=== PATIENT | male | born 1950 | race Caucasian/White ===

== ENCOUNTER 2024-09-20 11:26 | Outpatient (RCR) | payer MEDICARE, SELFPAY ==
--- NOTE | 2024-09-25 23:46 | CTCFLWUP_ITS ---
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 REASON FOR TODAY?S VISIT: patient here for follow up. He is clinically doing well. Denies any compl aints. Denies any cough, chest pain, abdominal pain or leg cramps. Ambulating well without any help . Has good appetite and good energy levels. His last ct CT scan of the chest abdomen and pelvis do ne was negative for recurrence. HISTORY OF PRESENT ILLNESS: Ana Laura Murdock is a 73-year-old ENG speaking male with history of alcohol abuse has the following oncology history. 08/07/2023: Mr. Murdock was seen here at [facility] emergency room because of slurred speech, mild weakness of the right upper arm. 08/07/2023: CT scan of the head without contrast 08/07/2023: CT angiogram of the carotids as well as brain? 08/07/2023: Hemoglobin 6.0, hematocrit 20.8, MCV 66, WBC 4.7, ANC 3.6, platelets 211,000, iron saturat ion 2%, ferritin 3, TIBC 366, serum iron 8. Guaiac test was positive. Mr. Murdock received 4 units of PRBC. 08/09/2023: Mr. Murdock had a colonoscopy done 08/11/2023: Mr. Murdock had exploratory laparotomy, transverse colectomy with 2 layer handsewn end-to- end anastomosis and cholecystectomy. 08/28/2023: Mr. Murdock is started on ferrous sulfate 325 mg p.o. twice daily. 01/05/2024: CT scan of the chest abdomen and pelvis with IV contrast PAST MEDICAL HISTORY: trans?iscimic???stroke/?colon?ca PAST MEDICAL HISTORY: trans?iscimic???stroke/?colon?ca PAST SURGICAL HISTORY: colon??gallbladder MEDICATIONS: 1. aspirin - 81 mg 1 tab Daily 2. atorvastatin - 80 mg Daily 3. docusate sodium - 100 mg Daily 4. ferrous sulfate - 325 mg Twice a Day 5. losartan - 50 mg 1 tab Daily 6. PANTOPRAZOLE SODIUM - 40 mg Daily 7. Vitamin B-12 - 1,000 mg As directed 8. zinc sulfate - 220 mg Daily?Palabra Meds? Medications Last Reconciled by Venus Thompson MA on 03/14/2024 ALLERGIES: No Known Drug Allergies REVIEW OF SYSTEMS:?Clone ROS? Neurological: No headache, seizures or blurring of vision. Gastrointestinal: No nausea, vomiting, diarrhea or constipation. Cardiovascular: No palpitations or angina pains. Respiratory: No cough, chest pain or shortness of breath. PHYSICAL EXAMINATION:?ClonePE? VITAL SIGNS: Temperature?98.8, B/P?163/109, Oxygen?Saturation?98% Weight?216.4?lbs PAIN: 0 - No pain EYE: Conjunctivae is white MOUTH: Oral cavity is dry. CHEST: Clear to auscultation. No wheezes or rales audible. CARDIAC: Rhythm regular, no murmurs or gallops present. ABDOMEN: Soft. No hepatomegaly. No splenomegaly. EXTREMITIES: No pedal edema or cyanosis. ASSESSMENT and plan : 1. 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 Discussed symptoms of cancer RTC with cbc,cmp and cea 2. History of iron deficiency anemia currently on oral ferrous sulfate, 1 tablet p.o. twice daily Advised to stop oral iron Will do iron studies and if low can take oral iron 3 History of alcohol abuse. Electronically Signed by: {Object.Sanct_ID*PnP.NameFL@M}, {Object.Sanct_ID*PnP.Suffix@U} D: {Object.Sanct_Date} T: {Object.Sanct_Time} CC: PCP: Referring: Day Cary This document was completed utilizing speech recognition software. Grammatical errors, random word in sertions, pronoun errors, and incomplete sentences are an occasional consequence of this system due t o software limitations, ambient noise, and hardware issues. Any formal questions or concerns about th e content, text or information contained within the body of this dictation should be directly address ed to the provider for clarification.
== END 2024-10-13 23:59 | disposition home or self-care (01) ==
LOC: SCTC 11:26
PROVIDERS: PCP Internal Medicine; Referring Provider Internal Medicine; Visit Provider Internal Medicine Hematology & Oncology
DX: Z08 Encounter for follow-up examination after completed treatment for malignant neoplasm (principal); Z85.038 Personal history of other malignant neoplasm of large intestine; Z86.2 Personal history of diseases of the blood and blood-forming organs and certain disorders involving the immune mechanism
CPT/HCPCS: 99212; G0463

== ENCOUNTER → 2024-09-28 | Outpatient (CLI) | payer MEDICARE, SELFPAY ==
[2024-09-28 10:10] LABS: Basophils # (Auto) 0.1 Thou/mm3 (0.0-0.2); Basophils % (Auto) 1 % (0-2.5); Eosinophils # (Auto) 0.1 Thou/mm3 (0.0-0.5); Eosinophils % (Auto) 2 % (0-10); Hematocrit 42.5 % (41.0-53.0); Hemoglobin 14.7 g/dL (13.5-16.0); Immature Granulocytes % (Auto) 0 % (0-0); Immature Granulocytes Auto 0.02 Thou/mm3 (0.00-0.00); Lymphocytes # (Auto) 1.5 Thou/mm3 (1.0-4.8); Lymphocytes % (Auto) 24 % (10-50); Mean Corpuscular HGB Conc 34.6 g/dl (31.0-37.0); Mean Corpuscular Hemoglobin 32.1 pg (25.0-35.0); Mean Corpuscular Volume 93 fL (80-100); Monocytes # (Auto) 0.5 Thou/mm3 (0.0-0.8); Monocytes % (Auto) 8 % (0-12); Neutrophils % (Auto) 66 % (37-80); Nucleated Red Blood Cell % 0 /100 WBC (0); Platelet Count 216 Thou/mm3 (140-440); RDW Standard Deviation 45.1 fL (35.1-43.9); Red Blood Count 4.58 Miln/mm3 (4.50-5.90); White Blood Count 6.1 Thou/mm3 (3.8-10.6)
[2024-09-28 10:20] LABS: Glucose Estimated Average 103 mg/dL (80-131); Hemoglobin A1C 5.2 % Hgb (4.8-6.0)
[2024-09-28 10:33] LABS: Alanine Aminotransferase 39 U/L (10-49); Albumin, Serum 4.5 gm/dL (3.4-4.8); Albumin/Globulin Ratio 1.7 (1.2-2.2); Alkaline Phosphatase 47 U/L (46-116); Anion Gap 3 (7-16); Aspartate Amino Transferase 29 U/L (0-34); BUN/Creatinine Ratio 8 Ratio (12-20); Blood Urea Nitrogen 9 mg/dL (9-23); Calcium 9.8 mg/dL (8.3-10.6); Calcium (Corrected) 9.8 mg/dL (8.5-10.1); Carbon Dioxide 29.4 mMol/L (20.0-31.0); Cardiac Risk Estimate 2.4 RATIO (4.0-6.7); Chloride 104 mMol/L (98-107); Cholesterol 128 mg/dL (132-200); Creatinine (Component) 1.1 mg/dL (0.6-1.3); Folate 13.05 ng/mL (>5.38); Globulin 2.7 gm/dL (2.3-3.5); Glucose 110 mg/dL (74-106); HDL Cholesterol 54 mg/dL (40-60); LDH (Lactate Dehydrogenase) 159 U/L (120-246); LDL Cholesterol,Calculated 60 mg/dL (0-130); Osmolality,Calculated 271 (275-295); Potassium 5.5 mMol/L (3.4-5.1); Sodium 136 mMol/L (136-145); Thyroid Stimulating Hormone 4.61 uIU/mL (0.55-4.78); Total Protein 7.2 gm/dL (5.7-8.2); Triglycerides 70 mg/dL (30-150); Uric Acid 7.2 mg/dL (3.7-9.2); Vitamin B12 410 pg/mL (211-911); Vitamin D 25 Hydroxy Total 32.8 ng/mL (7.3-40.2); eGFR > 60 See Note
[2024-09-28 10:42] LABS: Collection Type, Urine Clean Catch; Squamous Epithelial Cell,Urine 0 /hpf (0-5)
[2024-09-28 10:50] LABS: Ferritin 119 ng/mL (10.5-307.3); Iron 159 mcg/dL (65-175); Percent Iron Saturation 51 % (20-55); Total Iron Binding Capacity 306 mcg/dL (250-425); Unsaturated Iron Binding 147 (225-295)
[2024-09-28 11:03] LABS: Bilirubin,Urine Negative (Negative); Blood,Urine Negative (Negative); Clarity,Urine Clear (Clear/Hazy); Color,Urine Lt-Yellow (Lt Yel-Yel); Glucose, Urine Negative (Negative); Hyaline Casts,Urine < 1 /hpf (0-1); Ketones,Urine Negative (Negative); Leukocyte Esterase,Urine Negative (Negative); Nitrite,Urine Negative (Negative); Protein,Urine Negative (Neg - Trace); RBC,Urine 1 /hpf (0-3); Specific Gravity,Urine 1.009 (1.001-1.035); Urobilinogen,Urine Negative mg/dL (0.0-1.0); WBC,Urine 1 /hpf (0-5)
[2024-10-08 07:23] LABS: Haptoglobin* 121 mg/dL (43-212)
== END | disposition home or self-care (01) ==
LOC: SCTO 09:39
PROVIDERS: PCP Internal Medicine; Referring Provider Internal Medicine Hematology & Oncology; Visit Provider Internal Medicine Hematology & Oncology
DX: Z00.00 Encounter for general adult medical examination without abnormal findings (principal); C18.4 Malignant neoplasm of transverse colon; I10 Essential (primary) hypertension; E78.5 Hyperlipidemia, unspecified; D51.9 Vitamin B12 deficiency anemia, unspecified; E55.9 Vitamin D deficiency, unspecified
CPT/HCPCS: 36415; 80053; 80061; 81001; 82306; 82607; 82728; 82746; 83010; 83036; 83540; 83550; 83615; 84153; 84443; 84550; 85025

== ENCOUNTER → 2024-11-27 | Outpatient (CLI) | payer MEDICARE, SELFPAY ==
[2024-11-27 12:27] LABS: Cardiac Risk Estimate 2.2 RATIO (4.0-6.7); Cholesterol 120 mg/dL (132-200); HDL Cholesterol 54 mg/dL (40-60); LDL Cholesterol,Calculated 54 mg/dL (0-130); Triglycerides 58 mg/dL (30-150)
== END | disposition home or self-care (01) ==
LOC: COPL 10:56
PROVIDERS: PCP Internal Medicine; Referring Provider Psychiatry & Neurology Neurology; Visit Provider Psychiatry & Neurology Neurology
DX: I10 Essential (primary) hypertension (principal); E78.5 Hyperlipidemia, unspecified
CPT/HCPCS: 36415; 80061

== ENCOUNTER → 2025-01-25 | Outpatient (CLI) | payer MEDICARE, SELFPAY ==
[2025-01-25 11:41] LABS: Albumin, Serum 4.1 gm/dL (3.4-4.8); Anion Gap 8 (7-16); BUN/Creatinine Ratio 7 Ratio (12-20); Blood Urea Nitrogen 7 mg/dL (9-23); Carbon Dioxide 27.5 mMol/L (20.0-31.0); Chloride 104 mMol/L (98-107); Glucose 103 mg/dL (74-106); Osmolality,Calculated 275 (275-295); Phosphorous 2.9 mg/dL (2.4-5.1); Sodium 139 mMol/L (136-145); eGFR > 60 See Note
== END | disposition home or self-care (01) ==
LOC: COPL 10:29
PROVIDERS: PCP Internal Medicine; Referring Provider Internal Medicine; Visit Provider Internal Medicine
DX: I10 Essential (primary) hypertension (principal)
CPT/HCPCS: 36415; 80069

== ENCOUNTER → 2025-03-18 | Outpatient (CLI) | payer MEDICARE, SELFPAY ==
[2025-03-18 12:16] LABS: Basophils # (Auto) 0.1 Thou/mm3 (0.0-0.2); Basophils % (Auto) 1 % (0-2.5); Eosinophils # (Auto) 0.1 Thou/mm3 (0.0-0.5); Eosinophils % (Auto) 2 % (0-10); Hematocrit 42.3 % (41.0-53.0); Hemoglobin 14.5 g/dL (13.5-16.0); Immature Granulocytes % (Auto) 0 % (0-0); Immature Granulocytes Auto 0.01 Thou/mm3 (0.00-0.00); Lymphocytes # (Auto) 1.5 Thou/mm3 (1.0-4.8); Lymphocytes % (Auto) 24 % (10-50); Mean Corpuscular HGB Conc 34.3 g/dl (31.0-37.0); Mean Corpuscular Hemoglobin 32.7 pg (25.0-35.0); Mean Corpuscular Volume 96 fL (80-100); Monocytes # (Auto) 0.4 Thou/mm3 (0.0-0.8); Monocytes % (Auto) 7 % (0-12); Neutrophils # (Auto) 4.1 Thou/mm3 (1.8-7.7); Neutrophils % (Auto) 66 % (37-80); Nucleated Red Blood Cell % 0 /100 WBC (0); Platelet Count 225 Thou/mm3 (140-440); RDW Standard Deviation 46.5 fL (35.1-43.9); Red Blood Count 4.43 Miln/mm3 (4.50-5.90); White Blood Count 6.2 Thou/mm3 (3.8-10.6)
[2025-03-18 12:25] LABS: Ferritin 125 ng/mL (10.5-307.3); Iron 123 mcg/dL (65-175); Percent Iron Saturation 39 % (20-55); Total Iron Binding Capacity 310 mcg/dL (250-425); Unsaturated Iron Binding 187 (225-295)
[2025-03-18 12:56] LABS: Alanine Aminotransferase 28 U/L (10-49); Albumin, Serum 4.3 gm/dL (3.4-4.8); Albumin/Globulin Ratio 1.5 (1.2-2.2); Alkaline Phosphatase 45 U/L (46-116); Anion Gap 9 (7-16); Aspartate Amino Transferase 25 U/L (0-34); BUN/Creatinine Ratio 6 Ratio (12-20); Bilirubin,Total 0.7 mg/dL (0.3-1.2); Blood Urea Nitrogen 6 mg/dL (9-23); Calcium 8.9 mg/dL (8.3-10.6); Calcium (Corrected) 8.9 mg/dL (8.5-10.1); Carbon Dioxide 28.1 mMol/L (20.0-31.0); Chloride 104 mMol/L (98-107); Globulin 2.8 gm/dL (2.3-3.5); Glucose 111 mg/dL (74-106); LDH (Lactate Dehydrogenase) 167 U/L (120-246); Osmolality,Calculated 279 (275-295); Potassium 4.4 mMol/L (3.4-5.1); Sodium 141 mMol/L (136-145); Total Protein 7.1 gm/dL (5.7-8.2); eGFR > 60 See Note
[2025-03-18 13:31] LABS: Carcinoembryonic Antigen 2.4 ng/mL (0.0-5.0); Folate 7.91 ng/mL (>5.38); Vitamin B12 353 pg/mL (211-911)
[2025-03-26 06:38] LABS: Haptoglobin* 142 mg/dL (43-212)
== END | disposition home or self-care (01) ==
LOC: SCTO 11:04
PROVIDERS: PCP Internal Medicine; Referring Provider Internal Medicine Hematology & Oncology; Visit Provider Internal Medicine Hematology & Oncology
DX: C18.4 Malignant neoplasm of transverse colon (principal)
CPT/HCPCS: 36415; 80053; 82378; 82607; 82728; 82746; 83010; 83540; 83550; 83615; 85025

== ENCOUNTER 2025-04-09 08:59 | Outpatient (RCR) | payer MEDICARE, SELFPAY ==
--- NOTE | 2025-03-20 13:19 | CTCFLWUP_ITS ---
Patient: CURLY MURDOCK : 1950 Page 2 of 2 FOLLOW UP NOTE DATE OF SERVICE: 03/20/2025 NAME: CURLY MURDOCK ACCOUNT: [id number] : 1950 AGE: 74 INTERVAL HISTORY: Curly Hidalgo, a 16-year-old male with stage 2A transverse colon cancer diagnosed in 2022, presented for follow-up. His history included well- differentiated invasive adenocarcinoma of the transverse colon without high-risk factors and recent dermatological care for skin lesions. Laboratory results inc luding CEA (2.4), CBC, and CMP were normal with no evidence of cancer recurrence. Juan Ramon testing was ordered for early detection of potential recurrence, with follow-up scheduled in 6 months. Patient was counseled on minimizing alcohol intake and implementing comprehensive sun protection measures due to his outdoor work history. Chief Complaint Follow-up for stage 2A transverse colon cancer diagnosed in 2022 History of Present Illness Curly Hidalgo, a 16-year-old male with a history of stage 2A transverse colon cancer diagnosed in 2022, presents for follow-up. 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 Since his last visit, the patient reports minimal alcohol consumption. He admits to drinking a beer or michelada after work, which he describes as not very little. The patient has also been seeing a windows application administrator for skin cancer concerns. The windows application administrator has identified and removed a couple of skin lesions, with a recent biopsy on his back returning negative for cancer. The patient's daughter, who is present at the visit, confirms that he doesn't spend much time in the sun anymore. However, the patient acknowledges a history of extensive outdoor work without wearing a hat, which has likely contributed to sun damage. Medical History - Stage 2A transverse colon cancer diagnosed in 2022 - History of skin cancers, under dermatological care Surgical History - Transverse colon cancer surgery in 2022 for stage 2A well-differentiated invasive adenocarcinoma Medications and Supplements - Alcohol - Minimal consumption. Patient drinks a beer or michelada after work. Vital Signs - Height: 6 feet (approximate) Physical Examination General: Patient is 16 years old, almost 6 feet tall. Skin: Multiple areas of skin removal noted, likely from previous biopsies. 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 REASON FOR TODAY?S VISIT: patient here for follow up. He is clinically doing well. Denies any complaints. Denies any cough, chest pain, abdominal pain or leg cramps. Ambulating well without any help. Has good appetite and good energy levels. His last ct CT scan of the chest abdomen and pelvis done was negative for recurrence. Malignant neoplasm of transverse colon [ICD10] C18.4 DATE OF DIAGNOSIS: STAGE/TNM: TREATMENT HISTORY: Care?Plan Start?Date Cycle Day Intent HISTORY OF PRESENT ILLNESS: Curly Murdock is a 74-year-old ENG speaking male with history of alcohol abuse has the following oncology history. 08/07/2023: Mr. Murdock was seen here at [facility] emergency room because of slurred speech, mild weakness of the right upper arm. 08/07/2023: CT scan of the head without contrast 08/07/2023: CT angiogram of the carotids as well as brain? 08/07/2023: Hemoglobin 6.0, hematocrit 20.8, MCV 66, WBC 4.7, ANC 3.6, platelets 211,000, iron saturation 2%, ferritin 3, TIBC 366, serum iron 8. Guaiac test was positive. Mr. Murdock received 4 units of PRBC. 08/09/2023: Mr. Murdock had a colonoscopy done 08/11/2023: Mr. Murdock had exploratory laparotomy, transverse colectomy with 2 layer handsewn end-to-end anastomosis and cholecystectomy. 08/28/2023: Mr. Murdock is started on ferrous sulfate 325 mg p.o. twice daily. 01/05/2024: CT scan of the chest abdomen and pelvis with IV contrast PAST MEDICAL HISTORY: trans?iscimic???stroke/?colon?ca OTHER MEDICAL HISTORY/CONDITIONS: trans?iscimic???stroke/?colon?ca colon??gallbladder FAMILY HISTORY: Mother:?ovarian???ca SOCIAL HISTORY: Occupational?History:?retired [employer] Education?Level:?Completed High School Marital?Status:? Tobacco?Pack?per?Day:?0 Tobacco?Use?Years:?30 ETOH Use:?10 beers x 30 yrs/ quit 1mth Drug?Note:?denies Social?History?Note:?lives?wi??daughter MEDICATIONS: 1. aspirin - 81 mg 1 tab Daily 2. losartan - 50 mg 1 tab Daily 3. Macular Health Formula - 5-1-7.5 mg 1 Capsule Daily 4. quercetin - 500 mg 1 Capsule Daily Medications Last Reconciled by Graciela Layton MA on 03/20/2025 ALLERGIES: No Known Drug Allergies REVIEW OF SYSTEMS: A complete 14-point review of systems was performed and is negative except as noted in interval history. PHYSICAL EXAMINATION: VITAL SIGNS: Temperature?98.7, B/P?180/116, Oxygen?Saturation?97% Weight?237?lbs PAIN: 0 - No pain ECOG Performance Status: 0 - Asymptomatic and fully active GENERAL APPEARANCE: Appears well, in no apparent distress, appropriately interactive. HEENT: Normocephalic, no temporal wasting, normal conjunctiva, no scleral icterus, normal hearing, lips without lesions, neck normal range of motion. CARDIOVASCULAR: Not assessed. PULMONARY: Normal respiratory effort, no respiratory distress or use of accessory muscles, speaking in full sentences, no tachypnea. EXTREMITIES: No pedal edema or cyanosis. SKIN: Normal skin appearance. NEUROLOGIC: Alert and oriented x4. PSHYCHIATRIC: Appropriate affect, mood normal, behavior normal, intact thought and speech. LABORATORY DATA: I have personally reviewed and interpreted each of the patient?s relevant lab tests, abnormal findings are below: Date 03/18/25 ??WHITE?BLOOD?COUNT?(Thou/mm3) 6.2 ??RED?BLOOD?COUNT?(Miln/mm3) 4.43?L ??HEMOGLOBIN?(gm/dl) 14.5 ??HEMATOCRIT?(%) 42.3 ??PLATELET?COUNT?(Thou/mm3) 225 ??NEUTROPHILS?%,?AUTO?(%) 66 ??LYMPH?%,?AUTO?(%) 24 ??NEUTROPHILS,?AUTO?(Thou/mm3) 4.1 ??GLUCOSE,RANDOM?(mg/dL) 111?H ??BLOOD?UREA?NITROGEN?(mg/dL) 6?L ??CREATININE?(mg/dL) 1.00 ??SODIUM?(mmol/L) 141 ??POTASSIUM?(mmol/L) 4.4 ??CHLORIDE?(mmol/L) 104 ??CrCl?(CandG)?(ml/min) 81.92 ??AST/SGOT?(Unit/L) 25 ??ALT/SGPT?(Unit/L) 28 ??ALKALINE?PHOSPHATASE?(Unit/L) 45?L ??BILIRUBIN,?TOTAL?(mg/dL) 0.7 ??PROTEIN?TOTAL?(gm/dl) 7.1 ??ALBUMIN,?SERUM?(gm/dl) 4.3 ??GLOBULIN?(gm/dl) 2.8 ??ALBUMIN/GLOBULIN?RATIO 1.5 ??CALCIUM,?SERUM?(mg/dL) 8.9 ??CALCIUM?SERUM?(CORRECTED)?(mg/dL) 8.9 ??CEA?(O*)?(ng/ml) 2.4 ??TOTAL?IRON?BINDING?CAP?(S*)?(mcg/dL) 310 ??UNBOUND?IBC?(mcg/dL) 187?L ASSESSMENT/PLAN: Curly Hidalgo, a 16-year-old male with a history of stage 2A transverse colon cancer diagnosed in 2022, presents for follow-up. 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 There were no high-risk factors identified. Current labs, including CBC, CMP, and CEA (2.4), are all within normal limits. There is no clinical or radiographic evidence of cancer recurrence at this time. However, given the potential for early recurrence, further testing is warranted. Plan: - Order Juan Ramon ([facility]) testing for early detection of potential cancer recurrence - Informed patient of test's high sensitivity (93%) and specificity (98%) for colon cancer - Explained test can detect recurrence up to 8-9 months earlier than conventional methods - Assured patient of likely insurance approval and no [id number] costs - Continue monitoring CEA levels - Follow-up appointment in 6 months History of Alcohol Use Assessment: Patient reports minimal alcohol consumption. Current intake is described as very little, which is deemed acceptable. Patient admits to drinking a beer or michelada after work. Plan: - Advised to maintain minimal alcohol intake, preferably limited to one glass of wine or equivalent - Educated patient on potential liver damage from excessive alcohol consumption Skin Cancer Risk Assessment: Patient reports seeing a windows application administrator for skin cancer screening. Multiple skin lesions have been identified and removed, with at least one biopsy on the back returning negative for cancer. Patient has a history of significant sun exposure due to outdoor work without proper protection, increasing his risk for skin cancer. Plan: - Recommended sun protection measures: - Wear full-sleeve, sun-protective clothing (e.g., tennis/sports jerseys with SPF) - Use a wide-brimmed hat for head and neck protection - Apply water-resistant sunscreen, reapplying every 2-3 hours, especially when sweating - Use mesh screens on car windows for additional protection while driving - Continue regular follow-ups with windows application administrator for skin cancer screening ORDERS: Order # Description [id number] Follow Up 6 Month [id number] Comprehensive Metabolic Panel - 12 + CBC with Auto Diff + CEA [id number] RETURN TO CLINIC: BILLING AND COMPLIANCE: I reviewed external records from providers outside my specialty as summarized above. I spent a total of 50 minutes on this patient?s care on the day of their visit excluding time spent related to any billed procedures. This time includes time spent with the patient as well as time spent documenting in the medical record, reviewing patients records and tests, obtaining history, placing orders, communicating with other healthcare professionals, counseling the patient, family or caregiver, and/or care coordination for the diagnoses above. Electronically Signed by: Tor Kan MD T: 1:17 PM CC: PCP: Referring: Day Cary This document was completed utilizing speech recognition software. Grammatical errors, random word insertions, pronoun errors, and incomplete sentences are an occasional consequence of this system due to software limitations, ambient noise, and hardware issues. Any formal questions or concerns about the content, text or information contained within the body of this dictation should be directly addressed to the provider for clarification.
== END 2025-04-13 23:59 | disposition home or self-care (01) ==
LOC: SCTC 08:59
PROVIDERS: PCP Internal Medicine; Referring Provider Internal Medicine; Visit Provider Internal Medicine Hematology & Oncology
DX: C18.4 Malignant neoplasm of transverse colon (principal); L98.9 Disorder of the skin and subcutaneous tissue, unspecified; Z71.41 Alcohol abuse counseling and surveillance of alcoholic
CPT/HCPCS: 36415; 99212; G0463

== ENCOUNTER → 2025-06-26 | Outpatient (CLI) | payer MEDICARE, SELFPAY ==
[2025-06-26 11:03] LABS: Albumin, Serum 4.3 gm/dL (3.4-4.8); Anion Gap 6 (7-16); BUN/Creatinine Ratio 6 Ratio (12-20); Blood Urea Nitrogen 7 mg/dL (9-23); Calcium 9.4 mg/dL (8.3-10.6); Calcium (Corrected) 9.4 mg/dL (8.5-10.1); Carbon Dioxide 27.6 mMol/L (20.0-31.0); Chloride 104 mMol/L (98-107); Creatinine (Component) 1.1 mg/dL (0.6-1.3); Glucose 117 mg/dL (74-106); Osmolality,Calculated 274 (275-295); Phosphorous 2.5 mg/dL (2.4-5.1); Potassium 4.7 mMol/L (3.4-5.1); Sodium 138 mMol/L (136-145); eGFR > 60 See Note
[2025-06-26 11:11] LABS: Collection Type, Urine Clean Catch
[2025-06-26 12:12] LABS: Bacteria,Urine Rare; Bilirubin,Urine Negative (Negative); Blood,Urine Negative (Negative); Clarity,Urine Clear (Clear/Hazy); Color,Urine Lt-Yellow (Lt Yel-Yel); Glucose, Urine Negative (Negative); Ketones,Urine Negative (Negative); Leukocyte Esterase,Urine Positive (Negative); Nitrite,Urine Negative (Negative); PH,Urine 6.5 (5.0-7.0); Protein,Urine Negative (Neg - Trace); RBC,Urine 1 /hpf (0-3); Specific Gravity,Urine 1.010 (1.001-1.035); Squamous Epithelial Cell,Urine 2 /hpf (0-5); Urobilinogen,Urine Negative mg/dL (0.0-1.0); WBC,Urine 7 /hpf (0-5)
== END | disposition home or self-care (01) ==
LOC: COPL 10:17
PROVIDERS: PCP Internal Medicine; Referring Provider Internal Medicine; Visit Provider Internal Medicine
DX: I10 Essential (primary) hypertension (principal)
CPT/HCPCS: 36415; 80069; 81001

== ENCOUNTER 2025-08-21 10:51 | Outpatient (RCR) | payer MEDICARE, SELFPAY | END 2025-09-13 23:59 | disposition home or self-care (01) | LOC: SCTC 10:51 | PROVIDERS: PCP Internal Medicine; Referring Provider Internal Medicine; Visit Provider Internal Medicine Hematology & Oncology | DX: C18.4 Malignant neoplasm of transverse colon (principal); L98.8 Other specified disorders of the skin and subcutaneous tissue | CPT/HCPCS: 99212; G0463 ==

== ENCOUNTER → 2025-08-22 | Outpatient (CLI) | payer MEDICARE, SELFPAY ==
[2025-08-22 08:12] LABS: Misc Send Out* See Sep Rpt
[2025-08-22 08:38] LABS: Basophils # (Auto) 0.1 Thou/mm3 (0.0-0.2); Basophils % (Auto) 1 % (0-2.5); Eosinophils # (Auto) 0.1 Thou/mm3 (0.0-0.5); Eosinophils % (Auto) 2 % (0-10); Hematocrit 41.4 % (41.0-53.0); Hemoglobin 14.2 g/dL (13.5-16.0); Immature Granulocytes Auto 0.02 Thou/mm3 (0.00-0.00); Lymphocytes # (Auto) 1.7 Thou/mm3 (1.0-4.8); Lymphocytes % (Auto) 26 % (10-50); Mean Corpuscular HGB Conc 34.3 g/dl (31.0-37.0); Mean Corpuscular Hemoglobin 32.3 pg (25.0-35.0); Mean Corpuscular Volume 94 fL (80-100); Monocytes # (Auto) 0.5 Thou/mm3 (0.0-0.8); Monocytes % (Auto) 7 % (0-12); Neutrophils # (Auto) 4.3 Thou/mm3 (1.8-7.7); Neutrophils % (Auto) 64 % (37-80); Nucleated Red Blood Cell # 0.00 Thou/mm3 (0.00-0.00); Nucleated Red Blood Cell % 0 /100 WBC (0); Platelet Count 207 Thou/mm3 (140-440); RDW Standard Deviation 46.1 fL (35.1-43.9); Red Blood Count 4.39 Miln/mm3 (4.50-5.90); White Blood Count 6.7 Thou/mm3 (3.8-10.6)
[2025-08-22 08:51] LABS: Alanine Aminotransferase 30 U/L (10-49); Albumin, Serum 4.5 gm/dL (3.4-4.8); Albumin/Globulin Ratio 1.6 (1.2-2.2); Alkaline Phosphatase 44 U/L (46-116); Anion Gap 10 (7-16); Aspartate Amino Transferase 31 U/L (0-34); BUN/Creatinine Ratio 5 Ratio (12-20); Bilirubin,Total 0.7 mg/dL (0.3-1.2); Blood Urea Nitrogen 6 mg/dL (9-23); Calcium 9.8 mg/dL (8.3-10.6); Calcium (Corrected) 9.8 mg/dL (8.5-10.1); Carbon Dioxide 26.8 mMol/L (20.0-31.0); Chloride 103 mMol/L (98-107); Creatinine (Component) 1.1 mg/dL (0.6-1.3); Globulin 2.8 gm/dL (2.3-3.5); Glucose 135 mg/dL (74-106); Osmolality,Calculated 279 (275-295); Potassium 4.3 mMol/L (3.4-5.1); Sodium 140 mMol/L (136-145); Total Protein 7.3 gm/dL (5.7-8.2); eGFR > 60 See Note
[2025-08-22 08:54] LABS: Carcinoembryonic Antigen 2.7 ng/mL (0.0-5.0)
== END | disposition home or self-care (01) ==
LOC: COPL 07:44
PROVIDERS: PCP Internal Medicine; Referring Provider Internal Medicine Hematology & Oncology; Visit Provider Internal Medicine Hematology & Oncology
DX: C18.4 Malignant neoplasm of transverse colon (principal)
CPT/HCPCS: 36415; 80053; 82378; 85025

== ENCOUNTER → 2025-10-08 | Outpatient (CLI) | payer MEDICARE, SELFPAY ==
[2025-10-08 10:13] LABS: Collection Type, Urine Clean Catch; Squamous Epithelial Cell,Urine 0 /hpf (0-5)
[2025-10-08 10:45] LABS: Bilirubin,Urine Negative (Negative); Blood,Urine Negative (Negative); Clarity,Urine Clear (Clear/Hazy); Color,Urine Yellow (Lt Yel-Yel); Glucose, Urine Negative (Negative); Hyaline Casts,Urine < 1 /hpf (0-1); Ketones,Urine Negative (Negative); Leukocyte Esterase,Urine Negative (Negative); Nitrite,Urine Negative (Negative); PH,Urine 7.0 (5.0-7.0); Protein,Urine Negative (Neg - Trace); RBC,Urine 3 /hpf (0-3); Specific Gravity,Urine 1.019 (1.001-1.035); Urobilinogen,Urine Negative mg/dL (0.0-1.0); WBC,Urine 1 /hpf (0-5)
[2025-10-08 10:50] LABS: Alanine Aminotransferase 31 U/L (10-49); Albumin, Serum 4.5 gm/dL (3.4-4.8); Albumin/Globulin Ratio 1.8 (1.2-2.2); Anion Gap 9 (7-16); Aspartate Amino Transferase 26 U/L (0-34); BUN/Creatinine Ratio 7 Ratio (12-20); Bilirubin,Total 0.8 mg/dL (0.3-1.2); Blood Urea Nitrogen 8 mg/dL (9-23); Calcium 9.7 mg/dL (8.3-10.6); Calcium (Corrected) 9.7 mg/dL (8.5-10.1); Carbon Dioxide 27.0 mMol/L (20.0-31.0); Chloride 104 mMol/L (98-107); Creatinine (Component) 1.2 mg/dL (0.6-1.3); Globulin 2.5 gm/dL (2.3-3.5); Glucose 104 mg/dL (74-106); Osmolality,Calculated 277 (275-295); Potassium 4.7 mMol/L (3.4-5.1); Sodium 140 mMol/L (136-145); Thyroid Stimulating Hormone 3.94 uIU/mL (0.55-4.78); Total Protein 7.0 gm/dL (5.7-8.2); Uric Acid 6.0 mg/dL (3.7-9.2); eGFR > 60 See Note
[2025-10-08 11:20] LABS: Alkaline Phosphatase 43 U/L (46-116); Cardiac Risk Estimate 2.3 RATIO (4.0-6.7); Cholesterol 116 mg/dL (132-200); HDL Cholesterol 50 mg/dL (40-60); LDL Cholesterol,Calculated 53 mg/dL (0-130); Triglycerides 64 mg/dL (30-150)
[2025-10-08 12:43] LABS: Prostate Specific Antigen 1.57 ng/mL (0-4.00)
[2025-10-08 12:58] LABS: Vitamin B12 389 pg/mL (211-911); Vitamin D 25 Hydroxy Total 44.2 ng/mL (7.3-40.2)
[2025-10-08 13:02] LABS: Basophils # (Auto) 0.1 Thou/mm3 (0.0-0.2); Basophils % (Auto) 1 % (0-2.5); Eosinophils # (Auto) 0.2 Thou/mm3 (0.0-0.5); Eosinophils % (Auto) 3 % (0-10); Hematocrit 41.6 % (41.0-53.0); Hemoglobin 14.4 g/dL (13.5-16.0); Immature Granulocytes Auto 0.02 Thou/mm3 (0.00-0.00); Lymphocytes # (Auto) 1.7 Thou/mm3 (1.0-4.8); Lymphocytes % (Auto) 23 % (10-50); Mean Corpuscular HGB Conc 34.6 g/dl (31.0-37.0); Mean Corpuscular Hemoglobin 32.7 pg (25.0-35.0); Mean Corpuscular Volume 95 fL (80-100); Monocytes # (Auto) 0.5 Thou/mm3 (0.0-0.8); Monocytes % (Auto) 8 % (0-12); Neutrophils # (Auto) 4.7 Thou/mm3 (1.8-7.7); Neutrophils % (Auto) 66 % (37-80); Nucleated Red Blood Cell # 0.00 Thou/mm3 (0.00-0.00); Nucleated Red Blood Cell % 0 /100 WBC (0); Platelet Count 240 Thou/mm3 (140-440); RDW Standard Deviation 46.8 fL (35.1-43.9); Red Blood Count 4.40 Miln/mm3 (4.50-5.90); White Blood Count 7.2 Thou/mm3 (3.8-10.6)
== END | disposition home or self-care (01) ==
LOC: COPL 09:33
PROVIDERS: PCP Internal Medicine; Referring Provider Internal Medicine; Visit Provider Internal Medicine
DX: Z00.00 Encounter for general adult medical examination without abnormal findings (principal); I12.9 Hypertensive chronic kidney disease with stage 1 through stage 4 chronic kidney disease, or unspecified chronic kidney disease; N18.32 Chronic kidney disease, stage 3b; D51.9 Vitamin B12 deficiency anemia, unspecified; E55.9 Vitamin D deficiency, unspecified
CPT/HCPCS: 36415; 80053; 80061; 81001; 82306; 82607; 84153; 84443; 84550; 85025